=== PATIENT | female | born 1980 | race Caucasian/White ===

== ENCOUNTER 2019-12-25 16:14 | Emergency (ER) | payer OTHER ==
[~2019-12-25] VITALS: Ht 165.1 cm; Wt 117.9 kg
[~2019-12-25 16:14] MED LIST: KETO10TA2 PO
[2019-12-25] MEDS ORDERED: KETO10TA2 PO (20:32)
== END 2019-12-25 22:13 | disposition home or self-care (01) ==
LOC: ER 16:14
DX: N83.292 Other ovarian cyst, left side (principal); N83.291 Other ovarian cyst, right side; Z03.818 Encounter for observation for suspected exposure to other biological agents ruled out

== ENCOUNTER 2024-07-13 11:15 | Inpatient (IN) | payer OTHER ==
[~2024-07-13] VITALS: Ht 165.1 cm; Wt 124.7 kg
[2024-07-13] MEDS ORDERED: CEFADROXIL500 MG/5 M PO (13:30)
[2024-07-13] MEDS ORDERED: MEGESTROL ACETA20 MG PO (13:31)
[2024-07-13 13:35] VITALS: BP 134/91
[2024-07-17] MEDS ORDERED: CEFAZOLIN SODIUM 1,000 MG VIAL ONE (16:20)
[2024-07-17] MEDS ORDERED: POVIDONE-IODINE 118 ML BOTT TOP ONE (16:20)
[2024-07-17] MEDS ORDERED: LIDOCAINE HCL 1%/EPINEPHRINE 20ML VIAL IJ ONE (18:15)
[2024-07-17] MEDS ORDERED: hydrALAZINE HCL 20 MG VIAL ONE ×2 (18:44→18:47)
[2024-07-17] MEDS ORDERED: THROMBIN,HU/FIBRINOGEN/CALCIUM 10 ML SYRINGE TOP ONE (20:06)
[2024-07-17] MEDS ORDERED: VISTASEAL DUAL APPICATOR 1 EACH APPL TOP ONE (20:06)
[2024-07-17] MEDS ORDERED: MEPERIDINE HCL/PF 50 MG/ML VIAL IV SCH (20:45)
[2024-07-17] MEDS ORDERED: KETOROLAC TROMETHAMINE 60 MG VIAL IM ONE (20:45)
[2024-07-17] MEDS ORDERED: SUGAMMADEX SODIUM 200 MG/2 ML VIAL IV ONE (20:46)
[2024-07-17] MEDS ORDERED: PROMETHAZINE HCL 25 MG/ML AMPUL IV SCH (21:00)
[2024-07-17] MEDS ORDERED: MORPHINE SULFATE 4 MG/ML VIAL IV ONE (21:25)
[2024-07-17] MEDS ORDERED: MEPERIDINE HCL 50 MG/ML AMPUL IV ONE (21:55)
[2024-07-17] MEDS ORDERED: PROMETHAZINE HCL 25 MG/ML AMPUL IV ONE (21:55)
[2024-07-17 22:43] VITALS: BP 146/88
[2024-07-18 00:27] VITALS: BP 140/84
[2024-07-18 03:55] LABS: HEMATOCRIT 36.6 % (36.0-45.00); HEMOGLOBIN 12.5 g/dL (12.0-15.00); MEAN CELL VOLUME 87.8 fL (80.00-100.00); MEAN CORPUSCULAR HGB CONC 34.2 g/dl (32.0-36.0); PLATELET COUNT 333 K/uL (150-450); RED BLOOD COUNT 4.17 M/uL (4.00-6.00); RED CELL DISTRIBUTION WIDTH 14.1 % (11.5-14.5)
[2024-07-18 05:50] VITALS: BP 120/74
[2024-07-18] MEDS ORDERED: OxyCODONE HCL/APAP UD (PERCOCET) PO SCH (08:00)
[2024-07-18 08:31] VITALS: BP 123/79
[2024-07-18] MEDS ORDERED: DOCUSATE SODIUM 100MG CAP PO SCH (09:00)
[2024-07-18] MEDS ORDERED: SIMETHICONE 125 MG CAPSULE PO SCH (09:00)
== END 2024-07-18 12:15 | disposition home or self-care (01) | DRG 743 ==
LOC: SURH 07-17 07:00 → O/R 07-17 15:38 → OB/GYN 07-17 22:07
PROVIDERS: ADMIT Specialist; ATTEND Specialist
PROC: 0UT74ZZ Resection of Bilateral Fallopian Tubes, Percutaneous Endoscopic Approach (ICD-10-PCS; 2024-07-17)
PROC: 0UT94ZZ Resection of Uterus, Percutaneous Endoscopic Approach (ICD-10-PCS; principal; 2024-07-17 07:00)
DX: D25.2 Subserosal leiomyoma of uterus (principal); N93.9 Abnormal uterine and vaginal bleeding, unspecified; N80.03 Adenomyosis of the uterus; N72 Inflammatory disease of cervix uteri